=== PATIENT | male | born 1965 | race Caucasian/White ===

== ENCOUNTER 2024-10-04 16:39 | Emergency (ER) | payer OTHER, SELFPAY ==
[2024-10-04 16:54] VITALS: BP 207/140
[2024-10-04 17:14] LABS: Hematocrit 44.4 % (39.0-52.0); Hemoglobin 14.5 g/dL (13.0-18.0); Mean Corp Hgb Conc. 32.7 g/dL (33.0-37.0); Mean Corpuscular Volume 88.8 fL (80.0-94.0); Nucleated Red Blood Cells % 0 % (-); Platelet Count 249 10^3/uL (130-400); Red Cell Dist. Width 13.3 % (11.5-14.5)
[2024-10-04 17:29] LABS: ALT (SGPT) 24 U/L (0-50); AST (SGOT) 22 U/L (17-59); Albumin 4.7 g/dl (3.5-5.0); Alkaline Phosphatase 64 U/L (38-126); Blood Urea Nitrogen 18 mg/dl (9-20); Calcium 9.4 mg/dl (8.4-10.2); Carbon Dioxide 25 mmol/L (22-30); Chloride 105 mmol/L (98-107); Glucose 107 mg/dl (70-99); Potassium 3.9 mmol/L (3.5-5.1); Sodium 139 mmol/L (135-145); Total Protein 8.0 g/dl (6.3-8.2); eGFR > 60.00
--- NOTE | 2024-10-04 20:29 | ED.GENMED ---
History of Present Illness
General
Chief Complaint: Skin Problem
Source: patient
Exam Limitations: none
Time Seen by Provider: 10/04/24 19:26
History of Present Illness
History of Present Illness:
Patient cut his foot about a month ago. He thinks it may have needed stitches at that time but he did not pursue this. 2 weeks ago the wound started looking worse. He started Keflex. Symptoms have been improving and appearance has been
improving. However he developed some pain mostly in his midfoot. This started in the last week. He did hit the foot 1 week earlier. No fever chills or systemic symptoms. Sent by the physician for further evaluation.
Past History
Past History
ED Past Medical History: NIDDM (Prediabetic)
Review of Systems
Review of Systems
All Other Systems: Not applicable
Constitutional: Denies fever or chills
Phy Exam
Physical Exam
Physical Exam:
General: Nontoxic appearing in no distress
Skin: Warm and dry, no rash
Neuro: Alert, nontoxic, grossly nonfocal
Psychiatric: Good eye contact and appropriate
Musculoskeletal: Left dorsal foot with a healing scab towards the distal fifth metatarsal. Very minimal inflammatory changes. No drainage. Good capillary refill to all the toes. No open wounds of the toes. No ischemia to the toes. Mild
swelling to the dorsal foot with mild tenderness over the 3rd and 4th metatarsal
Course
Orders/Labs/Results
Orders:
Orders
10/04/24 17:00
Foot, Left 3 View [CR Foot - Left Min 3 Views] Urgent
Comment:
Reason For Exam: infection, pain
10/04/24 17:04
Complete Blood Count/With Diff Urgent
Comprehensive Metabolic Panel Urgent
10/04/24 20:57
Doxycycline [Vibramycin] 100 mg PO NOW STA
Abnormal Lab Results
10/04/24
17:04
MCHC 32.7 L g/dL
(33.0-37.0)
MPV 11.3 H fL
(7.4-10.4)
Absolute Neuts (auto) 6.8 H 10^3/uL
(1.4-6.5)
Absolute Monos (auto) 0.8 H 10^3/uL
(0.1-0.6)
Lymphocytes % 19.9 L %
(20.5-51.1)
Glucose 107 H mg/dl
(70-99)
10/04/24 17:04
10/04/24 17:04
Vital Signs
Initial and Last Documented VS:
Initial Vital Signs
Temp Pulse Resp BP Pulse Ox
98.6 F 85 16 207/140 97
10/04/24 16:54 10/04/24 16:54 10/04/24 16:54 10/04/24 16:54 10/04/24 16:54
Last Documented Vital Signs
Temp Pulse Resp BP Pulse Ox
98.6 F 72 16 192/124 98
10/04/24 16:54 10/04/24 21:06 10/04/24 21:06 10/04/24 21:06 10/04/24 21:06
MDM/Problems Addressed
Differential Diagnosis Includes:
Clinically this wound is actually improving in appearance based on previous pictures. The concerning symptom is this new pain more towards the mid dorsal foot. Relatively low suspicion of osteomyelitis although it is feasibly on the differential.
Patient nontoxic. Normal blood work. X-rays are negative. Cannot justify a stat MRI. I did leave a message with the MRI center to hopefully have very close outpatient MRI. Will change to doxycycline.
*Radiology
Radiology exam reviewed: preliminary read by ED provider (neg) and radiology read reviewed (neg)
*Pulse Oximetry
SaO2: 97
Oxygen Mode of Delivery: Room air
Patient hypoxic: no
*Critical Care Note
Total Time (30-74mins, 75-104mins- exclusive of procedures): Not Applicable
Update Note
Update Note:
Messages left and patient hopefully will get MRI done TIMUR. Change antibiotics and close follow-up. Will also follow-up with wound care
Patient's diastolic blood pressure remains high at 124 and systolic of 192. He is totally asymptomatic. He states he gets this whenever he has to go to the hospital or medically. However his blood pressures at home have always been stable. Will
hold on emergently managing this but stress close rechecks and follow-up
ED Attending Note
-
Portions of this chart may have been created with voice recognition software.� Occasional wrong word or��sound alike� substitutions may have occurred due to the inherent limitations of voice recognition software.
Discharge Plan
Departure
Patient Disposition: Home (Routine Discharge)
Date of Disposition: 10/04/24
Time of Disposition: 20:58
Patient with high blood pressure during this ER visit?: Yes
Discharge Problem:
Persistent wound left foot, Elevated blood pressure reading
Instructions: Wound Care (DC), BLOOD PRESSURE
Prescriptions:
New
doxycycline hyclate 100 mg capsule
100 mg PO BID 10 Days Qty: 20 0RF
Referrals:
[facility] [Outside]
Cuong Don, DO [Family Provider, Family Practice] - Follow up in 2-3 days
Interventions
Interventions:
*Risk Screen - Suicide Last Done: 10/04/24 20:30
*General Assessment Last Done: 10/04/24 20:30
*Neglect/Abuse Screening Last Done: 10/04/24 20:30
*ED- Fall Risk Assessment Last Done: 10/04/24 20:30
*ED COVID-19 Vaccine History Last Done: 10/04/24 21:18
*Nursing Disposition Last Done: 10/04/24 21:18
ED-Skin Assessment Last Done: 10/04/24 20:30
Discharge Date and Time
Discharge Date/Time: 10/04/24 21:19
Print Language: SYRIAN
[2024-10-04 21:06] VITALS: BP 192/124
[2024-10-04] MEDS: VIBRAMYCIN 100 MG PO (21:09)
== END 2024-10-04 21:19 | disposition home or self-care (01) ==
LOC: EMR 16:39
PROVIDERS: Emergency Medicine; EMERGENCY PHYSICIAN Emergency Medicine; FAMILY PHYSICIAN Family Medicine
DX: S91.302A Unspecified open wound, left foot, initial encounter (principal); X58.XXXA Exposure to other specified factors, initial encounter; E11.9 Type 2 diabetes mellitus without complications; R03.0 Elevated blood-pressure reading, without diagnosis of hypertension
CPT/HCPCS: 99284; 73630; 80053; 85025

== ENCOUNTER → 2024-10-25 12:33 | Outpatient (REF) | payer OTHER, SELFPAY | LOC: WOUND 12:33 | PROVIDERS: ATTENDING PHYSICIAN Surgery; FAMILY PHYSICIAN Family Medicine | DX: L97.522 Non-pressure chronic ulcer of other part of left foot with fat layer exposed (principal) | CPT/HCPCS: 11042; 73630; 99204 ==

== ENCOUNTER → 2024-11-04 08:52 | Outpatient (REF) | payer OTHER, SELFPAY | LOC: WOUND 08:52 | PROVIDERS: ATTENDING PHYSICIAN Surgery; FAMILY PHYSICIAN Family Medicine | DX: L97.522 Non-pressure chronic ulcer of other part of left foot with fat layer exposed (principal); E11.621 Type 2 diabetes mellitus with foot ulcer; E66.813 Obesity, class 3; Z68.42 Body mass index [BMI] 45.0-49.9, adult | CPT/HCPCS: 11042 ==

== ENCOUNTER → 2024-11-11 10:20 | Outpatient (REF) | payer OTHER, SELFPAY | LOC: WOUND 10:20 | PROVIDERS: ATTENDING PHYSICIAN Surgery; FAMILY PHYSICIAN Family Medicine | DX: L97.522 Non-pressure chronic ulcer of other part of left foot with fat layer exposed (principal); E11.621 Type 2 diabetes mellitus with foot ulcer; E66.813 Obesity, class 3; Z68.42 Body mass index [BMI] 45.0-49.9, adult | CPT/HCPCS: 11042 ==

== ENCOUNTER → 2024-11-18 10:21 | Outpatient (REF) | payer OTHER, SELFPAY | LOC: WOUND 10:21 | PROVIDERS: ATTENDING PHYSICIAN Surgery; FAMILY PHYSICIAN Family Medicine | DX: L97.522 Non-pressure chronic ulcer of other part of left foot with fat layer exposed (principal); E11.621 Type 2 diabetes mellitus with foot ulcer; E66.813 Obesity, class 3; Z68.42 Body mass index [BMI] 45.0-49.9, adult | CPT/HCPCS: 11042 ==

== ENCOUNTER → 2024-11-25 10:21 | Outpatient (REF) | payer OTHER, SELFPAY | LOC: WOUND 10:21 | PROVIDERS: ATTENDING PHYSICIAN Surgery; FAMILY PHYSICIAN Family Medicine | DX: L97.522 Non-pressure chronic ulcer of other part of left foot with fat layer exposed (principal); E11.621 Type 2 diabetes mellitus with foot ulcer; E66.813 Obesity, class 3; Z68.42 Body mass index [BMI] 45.0-49.9, adult | CPT/HCPCS: 11042 ==

== ENCOUNTER → 2024-12-07 14:51 | Outpatient (REF) | payer OTHER, SELFPAY | LOC: WOUND 14:51 | PROVIDERS: ATTENDING PHYSICIAN Surgery; FAMILY PHYSICIAN Family Medicine | DX: L97.522 Non-pressure chronic ulcer of other part of left foot with fat layer exposed (principal); E11.621 Type 2 diabetes mellitus with foot ulcer; E66.813 Obesity, class 3; Z68.42 Body mass index [BMI] 45.0-49.9, adult | CPT/HCPCS: 11042 ==

== ENCOUNTER → 2024-12-16 10:06 | Outpatient (REF) | payer OTHER, SELFPAY | LOC: WOUND 10:06 | PROVIDERS: ATTENDING PHYSICIAN Surgery; FAMILY PHYSICIAN Family Medicine | DX: L97.522 Non-pressure chronic ulcer of other part of left foot with fat layer exposed (principal); E11.621 Type 2 diabetes mellitus with foot ulcer; E66.813 Obesity, class 3; Z68.42 Body mass index [BMI] 45.0-49.9, adult | CPT/HCPCS: 11042 ==

== ENCOUNTER 2024-12-23 10:26 | Outpatient (REF) | payer OTHER, SELFPAY | END 2024-12-23 23:59 | disposition home or self-care (01) | LOC: WOUND 10:26 | PROVIDERS: ATTENDING PHYSICIAN Surgery | DX: L97.522 Non-pressure chronic ulcer of other part of left foot with fat layer exposed (principal); E11.621 Type 2 diabetes mellitus with foot ulcer; E66.813 Obesity, class 3; Z68.42 Body mass index [BMI] 45.0-49.9, adult | CPT/HCPCS: 97597 ==

== ENCOUNTER 2024-12-28 10:22 | Outpatient (REF) | payer OTHER, SELFPAY | END 2024-12-28 23:59 | disposition home or self-care (01) | LOC: WOUND 10:22 | PROVIDERS: ATTENDING PHYSICIAN Surgery; FAMILY PHYSICIAN Family Medicine | DX: L97.522 Non-pressure chronic ulcer of other part of left foot with fat layer exposed (principal); E11.621 Type 2 diabetes mellitus with foot ulcer; E66.813 Obesity, class 3; Z68.42 Body mass index [BMI] 45.0-49.9, adult | CPT/HCPCS: 97597 ==

== ENCOUNTER 2025-01-20 10:25 | Outpatient (REF) | payer OTHER, SELFPAY | END 2025-01-20 23:59 | disposition home or self-care (01) | LOC: WOUND 10:25 | PROVIDERS: ATTENDING PHYSICIAN Registered Nurse; FAMILY PHYSICIAN Family Medicine | DX: L97.522 Non-pressure chronic ulcer of other part of left foot with fat layer exposed (principal); E11.621 Type 2 diabetes mellitus with foot ulcer; E66.813 Obesity, class 3; Z68.42 Body mass index [BMI] 45.0-49.9, adult | CPT/HCPCS: 99212 ==